=== PATIENT | male | born 1950 | race Caucasian/White ===

== ENCOUNTER 2016-08-25 07:09 | Day surgery (SDC) | payer BC ==
[~2016-08-25] VITALS: Ht 177.8 cm; Wt 82.6 kg
--- NOTE | ~2016-08-25 | HP ---
PATIENT: CATE CONTRERAS MEDICAL RECORD: [id number] ACCOUNT: [id number] [facility] AD[facility] DATE: 08/25/16 HISTORY AND PHYSICAL EXAMINATION Preoperative History and Physical HISTORY OF PRESENT ILLNESS: Mr. Contreras is a 65-year-old male, who is seen with hoarseness and also a sinusitis. He was noted on exam to have a right true vocal cord lesion. He is being admitted for biopsy of a right true vocal cord lesion and left maxillary antrostomy for left maxillary sinus that has totally opacified background with normal sinuses on the rest of his CT. PAST MEDICAL HISTORY: Includes hypertension and high cholesterol. CURRENT MEDICATIONS: Includes unknown medication for hypertension and high cholesterol. ALLERGIES: No known drug allergies. PHYSICAL EXAMINATION: GENERAL: He is healthy appearing. He does have a moderately hoarse voice. FACE: Normal, symmetric, no lesions. EYES: Sclerae and conjunctivae are normal. EARS: Canals and TMs are normal. NOSE: No masses, polyps, or drainage. He does have some right septal deviation. ORAL CAVITY AND OROPHARYNX: Tongue protrudes in midline. Pharynx is normal. No lesions or masses. NECK: No masses. No adenopathy. CHEST: Clear. CARDIOVASCULAR: Regular rate and rhythm. No murmur. DIAGNOSTIC DATA: Flexible laryngoscopy involves an exophytic lesion involving the right true vocal cord. CT shows chronic left maxillary sinusitis, occlusion of the osteomeatal complex. IMPRESSION: Hoarseness and right true vocal cord lesion, left chronic maxillary sinusitis. PLAN: Microsuspension laryngoscopy, biopsy of the vocal cord and left middle meatal antrostomy. TRANSINT:[id number] Voice Confirmation ID: [id number] DOCUMENT ID: [id number] HISTORY AND PHYSICAL [id number] CATE CONTRERAS ERIC MD CC: [id number] DICTATION DATE: 08/22/16 09 [employer]ILDLIFE REFU[employer] SPECIALIST: 08/22/16 0945 [place] [id number] [place] [id number]
--- NOTE | ~2016-08-25 | OP ---
PATIENT NAME: CATE CONTRERAS MEDICAL RECORD: [id number] :54 [facility]: SURGEON: EITAN GAVIRIA MD DATE OF OPERATION: 08/25/2016 PREOPERATIVE DIAGNOSES: Hoarseness and right true vocal cord lesion and left chronic maxillary sinusitis. PROCEDURES: 1. Microsuspension laryngoscopy and biopsy of right true cord. 2. Left endoscopic middle meatal antrostomy. SURGEON: Eitan Gaviria MD ANESTHESIA: General orotracheal. BLOOD LOSS: Less than 5 cc. SPECIMENS: 1. Right vocal cord lesion biopsy. 2. Cultures from the left maxillary sinus. NASAL PACKING: None. COMPLICATIONS: None. DISPOSITION: Recovery stable. FINDINGS: Exophytic papillomatous appearing lesion on the right anterior half of the right true cord, extending to the anterior commissure. Biopsy specimens were fairly small, so it was sent for permanent only to avoid loosing any of this significant amount of specimen. The left maxillary sinus was completely obstructed and completely full of purulence. DESCRIPTION OF PROCEDURE: He was brought to the operating room and then placed in supine position, sedated and intubated by anesthesia. The table was turned 90 degrees. His nose was examined, the left side, the inferior turbinate, middle turbinate and the lateral nasal wall injected with 0.5 cc of 1% lidocaine with 1:100,000 epinephrine and 2 Afrin pledgets were placed in the left side of the nose. He had been positioned for laryngoscopy. A plastic upper tooth guard was placed. Kleinsasser J. laryngoscope was used to examine the oropharynx, pharyngeal wong, vallecula, base of tongue, and supraglottic larynx and piriforms, post-cricoid area. No lesions were seen. Then, I went on to examine the larynx. The left cord was normal. He had an exophytic lesion on the right true cord. It really did not extend laterally, which is really on the medial aspect of the cord, but it did extend up and involve anterior commissure. He was placed in suspension. Microscope was brought in. Spatula was used to move the cord a little bit on the tube examine it and 2 mm upbiting cup forceps was used to take multiple biopsies. I remove the bulk of the lesion, but it was still just a small specimen. An Afrin pledget was placed in the area. The laryngoscope and the plastic tooth guard was removed, then he was repositioned. Table was turned for a sinus surgery. After that was arranged, I pulled the Afrin pledget out of the hypopharynx, and there was just a little bit of blood on it. It was positioned, prepped and draped in the usual fashion for a sinus surgery. A 0-degree scope was used to examine both sides of the nose. The OPERATIVE REPORT [id number] CATE CONTRERAS inferior and middle turbinates were normal, middle meatus, the nasopharynx, the septum were all normal. There were no lesions, masses or drainage. Then, using the scope in the left side of the nose, I used the Whitney elevator to just slightly compress the inferior turbinate laterally to get a better view and purulence just immediately extruded from the maxillary ostia. The middle turbinate was gently medialized with a freer and then examining the area even with a ball-tipped probe, the uncinate was really compressed completely against the lateral nasal wall. It was difficult to lift it up, but the purulence was coming out behind the uncinate there, so I lifted up the uncinate, fractured it anteriorly and took down a portion of it to expose the maxillary ostia and there was just purulence coming from there. Suction was used to obtain some of that in a Lou trap and sent for cultures, and then a microdebrider was used to take down some swollen tissue around the area and a backbiter was used to open up that maxillary sinus ostia nicely. Then, a long curved olive tip suction was inserted into the sinus to evacuate. Once that was completed, then with the 30-degree scope, mucosa and the sinus looked relatively normal, just slightly inflamed but not too edematous. A large olive tip suction was inserted and a 60 cc syringe was used to irrigate saline into that sinus repeatedly until it was completely clear. The nasopharynx was suctioned. The rest of the nose was examined. There was really hardly any bleeding. A curved olive tip suction was used to insert about cc and a half of mupirocin ointment into the maxillary sinuses as well. The scope was removed. The nasopharynx was suctioned. With the field clean and dry, the eyes were examined normal. He was awakened, extubated, and transported to recovery in good condition. No complications. TRANSINT:[id number] Voice Confirmation ID: [id number] DOCUMENT ID: [id number] EITAN GAVIRIA MD CC: [id number] DICTATION DATE: 08/25/161531 NURSES DIRECTOR: 08/26/16 0055 [facility] [place] 08/25/16 [place] [id number] [place] [phone]
[~2016-08-25 07:09] MED LIST: EXFORGE 5-160 M1 TAB PO; ZOCOR20 MG PO
[2016-08-25 09:00] VITALS: BP 125/72; Ht 177.8 cm; Wt 82.6 kg
[2016-08-25 09:27] LABS: HEMATOCRIT 39.5 % (42.0-54.0); HEMOGLOBIN 13.9 g/dL (13.5-17.5); MCH 32.1 pg (26.0-34.0); MCHC 35.2 g/dL (31.0-37.0); MCV 91.2 fL (80.0-100.0); MEAN PLATELET VOLUME 9.5 fL (7.4-10.4); RBC 4.33 10x6/uL (4.20-6.10); RDW 12.3 % (11.5-14.5); WBC 4.9 10x3/uL (4.8-10.8)
--- NOTE | 2016-08-25 17:03 | NUR ---
1300--IV DC'D, PT UP TO DRESS AT THIS TIME. NICK HARVEY 1320--DISCHARGE INSTRUCTIONS GIVEN, PT VERBALIZES UNDERSTANDING. PT OFF UNIT VIA WC. NICK HARVEY
== END 2016-08-25 13:20 | disposition home or self-care (01) ==
LOC: D.OPS 07:09 → D.PAN 07:30 → D.OPS 07:30 → D.PAN 08:00 → D.OPS 09:25
PROVIDERS: Anesthesiology
DX: J38.3 Other diseases of vocal cords (principal); J32.0 Chronic maxillary sinusitis; I10 Essential (primary) hypertension; E78.00 Pure hypercholesterolemia, unspecified; Z79.899 Other long term (current) drug therapy

== ENCOUNTER 2020-11-06 07:45 | Day surgery (SDC) | payer MEDICARE, OTHER ==
[~2020-11-06] VITALS: Ht 177.8 cm; Wt 85.3 kg
[2020-11-06 08:10] LABS: BASOPHILS 0.8 % (0-2); EOSINOPHILS 3.3 % (0-7); HEMATOCRIT 43.6 % (42.0-54.0); HEMOGLOBIN 14.6 g/dL (13.5-17.5); LYMPHOCYTES 28.7 % (15-50); MCH 31.6 pg (26.0-34.0); MCHC 33.5 g/dL (31.0-37.0); MCV 94.3 fL (80.0-100.0); MEAN PLATELET VOLUME 7.6 fL (7.4-10.4); MONOCYTES 10.3 % (2-11); NEUTROPHILS 56.9 % (40-80); PLATELET COUNT 168 10x3/uL (130-400); RBC 4.63 10x6/uL (4.20-6.10); WBC 5.6 10x3/uL (4.8-10.8)
[2020-11-06 08:29] LABS: CALC OSMOLALITY 283 mosm/kg (275-300); CALCIUM 8.5 mg/dL (8.5-10.1); CHLORIDE - SERUM 107 mmol/L (98-107); GLUCOSE 94 mg/dL (74-106); POTASSIUM - SERUM 3.9 mmol/L (3.5-5.1); SODIUM 141 mmol/L (136-145); UREA NITROGEN 20 mg/dL (7-18); eGFR NON AFRICAN AMERICAN 79 mL/min (90-120)
[2020-11-06 09:33] VITALS: BP 124/80; Ht 177.8 cm; Wt 85.3 kg
[2020-11-06] MEDS ORDERED: HYDROCODON-ACE1 EA10 PO (11:02)
--- NOTE | 2020-11-06 15:38 | NUR ---
1230 - PATIENT UP TO BATHROOM TO VOID. NO PROBLEMS NOTED.
--- NOTE | 2020-11-06 15:39 | NUR ---
1240 - IV D/C'D WITH TIP INTACT. PATIENT UP TO DRESS FOR DISCHARGE. INSTRUCTIONS COMPLETED.
--- NOTE | 2020-11-07 19:39 | OP ---
PATIENT NAME: CATE CONTRERAS MEDICAL RECORD: [id number] :54 LOCATION:[facility] ADMISSION DATE: SURGEON: TRACEE HERNÁNDEZ MD DATE OF OPERATION: 11/06/2020 PREOPERATIVE DIAGNOSES: 1. Ventral hernia. 2. Hypertension. 3. Hypercholesterolemia. POSTOPERATIVE DIAGNOSES: 1. Ventral hernia. 2. Hypertension. 3. Hypercholesterolemia. PROCEDURE: Ventral hernia repair. SURGEON: Tracee Hernández MD DESCRIPTION OF PROCEDURE: The patient's abdomen was prepped and draped in sterile fashion. A semicircular incision was made on the inferior aspect of the umbilicus. Electrocautery was used to dissect through the subcutaneous tissues. We elevated the umbilicus and could see the fascial floor. The patient had an incarcerated fat-containing defect. Once I freed up the hernia sac, then I was able to eventually push this fatty contents back into the abdominal cavity. The hernia defect was about a centimeter in size. I cleared up the fascial edges and reapproximated the fascia transversely with interrupted 0 Prolenes times 3. The wound was then irrigated out with normal saline. The umbilicus was tacked down to the fascia with a single interrupted 3-0 Vicryl. Subcutaneous tissues were reapproximated with interrupted 3-0 Vicryl and the skin was closed with subcutaneous running 5-0 Monocryl. A 10 mL of 0.25% Marcaine with epinephrine was infused into the surrounding tissues and the wound was dressed appropriately. COMPLICATIONS: None. CONDITION: Stable. ANESTHESIA: General endotracheal and local. BLOOD LOSS: Minimal. TRANSINT:[id number] Voice Confirmation ID: [id number] DOCUMENT ID: [id number] TRACEE HERNÁNDEZ MD at 1937 CC: HEMANT BROWN MD [id number] DICTATION DATE: 11/06/20 1102 SOUP MIXER: 11/06/[address] [facility] 11/06/20 [place] [id number] [place] [address]
== END 2020-11-06 12:55 | disposition home or self-care (01) ==
LOC: D.OPS 07:45
PROVIDERS: Anesthesiology; ATTEND Surgery
DX: K43.9 Ventral hernia without obstruction or gangrene (principal); I10 Essential (primary) hypertension; E78.00 Pure hypercholesterolemia, unspecified